=== PATIENT | female | born 1945 | race Caucasian/White ===

== ENCOUNTER 2021-06-05 16:29 | Emergency (ER) | payer MEDICARE, SELFPAY ==
[2021-06-05 17:00] VITALS: PULSE 88; RESP 17; TEMP 36.9; O2SAT 96; BMI 27.8
--- NOTE | 2021-06-05 19:17 | CTR_ITS ---
PROCEDURE INFORMATION: Exam: CT Head Without Contrast Exam date and time: 06/05/2021 7:17 PM Age: 76 years old Clinical indication: Altered mental status/memory loss; Confusion or disorientation; Additional info: AMS TECHNIQUE: Imaging protocol: Computed tomography of the head without contrast. Radiation optimization: All CT scans at this facility use at least one of these dose optimization techniques: automated exposure control; mA and/or kV adjustment per patient size (includes targeted exams where dose is matched to clinical indication); or iterative reconstruction. COMPARISON: No relevant prior studies available. RADIATION DOSE METRICS: Total DLP (mGy-cm): 626.19 FINDINGS: Brain: Mild diffuse cortical volume loss. Moderate hypodensities in supratentorial periventricular and subcortical white matter, consistent with microangiopathy. No intracranial hemorrhage. Cerebral ventricles: No ventriculomegaly. Paranasal sinuses: Mucosal thickening in the ethmoid air cells. No air-fluid level. Mastoid air cells: Visualized mastoid air cells are well aerated. Orbital cavity: Prior cataract surgery. Vasculature: No hyperdense artery. Bones/joints: Unremarkable. No acute fracture. Soft tissues: Unremarkable. CT/CT head wo con* [id number] IMPRESSION: No acute intracranial abnormality. Radiation Dose CTDIVOL = (mGy): DLP = 626.19 (mGy-cm)
--- NOTE | 2021-06-05 19:17 | XRR_ITS ---
PROCEDURE INFORMATION: Exam: XR Chest Exam date and time: 06/05/2021 7:17 PM Age: 76 years old Clinical indication: Other: No chest complaints; Additional info: AMS TECHNIQUE: Imaging protocol: XR of the chest. Views: 1 view. COMPARISON: CR Chest 1 [place] [id number] 03/27/2015 5:34 PM FINDINGS: Lungs: Mild atelectasis in the lung bases. The lungs are otherwise clear. Pleural spaces: Unremarkable. No pleural effusion. No pneumothorax. Heart/Mediastinum: Calcified right hilar lymph nodes. Bones/joints: Mild scoliosis. XR/XR chest 1V portable [id number] IMPRESSION: 1. No acute findings.
--- NOTE | 2021-06-05 19:33 | XRR_ITS ---
PROCEDURE INFORMATION: Exam: XR Left Foot Exam date and time: 06/05/2021 7:33 PM Age: 76 years old Clinical indication: Swelling, leg or foot; Patient HX: Swelling and redness to foot no known injury; Additional info: Red swelling TECHNIQUE: Imaging protocol: XR Left foot. Views: 3 or more views. . COMPARISON: No relevant pr swelling of the foot. ior studies available. FINDINGS: Bones/joints: No fracture or dislocation identified. Mild degenerative changes of the 1st metatarsophalangeal joint.. Soft tissues: Dorsal soft tissue swelling. XR/XR foot LT min 3V* [id number] IMPRESSION: No acute skeletal abnormality.
--- NOTE | 2021-06-05 19:36 | ED_ITS ---
HPI - Altered Mental Status General: Chief Complaint: Altered Mental Status Stated Complaint: fall,multiple bruises- sever dementia Time Seen by Provider: 06/05/21 18:59 History of Present Illness: HPI narrative: 26-year-old female with a history of vascular dementia. Family notes that the vascular dementia has been increasing over the last 2 years. The patient's been falling a lot at home. She has multiple bruises. She has a left swollen tender warm red left foot. No fever. Mental status the past few days has been a bit worse. She is no longer feeding herself. Family is trying to take care of her but not able to. MD complaint: altered mental status Onset (ago): year(s) Timing confirmed by: family member Severity: moderate Consistency of symptoms: Getting Worse Context: history of similar presentation Associated symptoms: Reports other; Deny suicidal ideation Review of Systems General: Reports: ROS unobtainable due to medical condition Narrative: Items from review of systems taken from family Const: Denies: fever(s), chills or change in weight Card: Reports: swelling of feet/ankles; Denies: chest pain Resp: Denies: dyspnea, productive cough or non-productive cough GI: Denies: vomiting or hematochezia : Reports: urinary incontinence Musc: Reports: other (Frequent falls) Neuro: Reports: lack of coordination, difficulty walking, frequent falls and difficulty communicating thoughts; Denies: seizure-like activity Psych: Denies: suicidal ideation Physical Exam Const: COMMON NORMALS: no acute distress EXAM LIMITATIONS: altered mental status GENERAL APPEARANCE: comfortable, well kempt and frail appearing; not in distress and not ill appearing ORIENTATION/CONSCIOUSNESS: Yes awake; not oriented to person, not oriented to place and not oriented to time HENMT: COMMON NORMALS: normocephalic and Normal external nose present HEAD & SCALP: normocephalic FACE & SINUS: normal facial exam NOSE: Normal external nose present and Normal nares present Eye: COMMON NORMALS: Equal, round and reactive pupils present and EOMs intact bilaterally PUPIL: Yes Equal, round and reactive pupils present Chest: COMMONS NORMALS: normal inspection of the chest Resp: COMMON NORMALS: normal respiratory effort, No use of accessory muscles and clear to auscultation bilaterally AUSCULTATION: clear to auscultation bilaterally Cardio: COMMON NORMALS: regular rate and regular rhythm RATE: regular rate RHYTHM: regular rhythm GI: COMMON NORMALS: Normal to inspection, nondistended, normoactive bowel sounds present, Soft to palpation and no masses PALPATION: Yes Soft to palpation Neuro: SENSORIUM/ORIENTATION: No oriented to person, No oriented to place and No oriented to time Psych: APPEARANCE: Yes well kempt Course Vital Signs: Vital signs: Vital Signs Temperature 98.4 F 06/05/21 17:00 Pulse Rate 83 06/05/21 21:56 Respiratory Rate 18 06/05/21 21:56 Blood Pressure 136/67 06/05/21 21:56 Pulse Oximetry 97 06/05/21 21:56 MDM - Altered Mental Status MDM Narrative: Medical decision making narrative: 76-year-old female with vascular dementia. Multiple falls. She does have some cellulitic changes to her left foot, but no bony changes. Chest x-ray is negative. Head CT is negati ve for acute change. Her laboratory is not remarkable. No urinary tract infection. Counseled with the fact that she does not meet admission criteria, will not qualify for 3 night stay in the hospital, and would therefore not be a candidate for skilled placement. We did offer case management consultation on Monday for home health help, and to contact PCP regarding the potential for dementia unit placement hopefully. Lab Data: Labs: Lab Results 06/05/21 06/05/21 06/05/21 Range/Units 19:30 19:30 19:30 WBC 7.7 (4.0-10.0) 10^3/ uL RBC 4.27 (4.1-5.3) 10^6/u L Hgb 12.9 (11.5-15.3) g/dL Hct 40.2 (37.0-47.0) % MCV 94.1 (81-99) fl MCH 30.2 (28.0-34.0) pg MCHC 32.1 (30.0-36.0) g/dL RDW 13.7 (12.1-15.1) % Plt Count 181 (130-400) 10^3/c mm MPV 13.1 H (7.4-10.4) fL Neut % (Auto) 68.8 % Lymph % (Auto) 17.4 % [place] % (Auto) 10.0 % Eos % (Auto) 2.7 % Baso % (Auto) 0.8 % Neut # (Auto) 5.31 (1.8-7.7) 10^3/u L Lymph # (Auto) 1.3 (0.8-4.8) 10^3/u L [place] # (Auto) 0.8 (0.2-0.9) 10^3/u L Eos # (Auto) 0.2 (0.0-0.8) 10^3/u L Baso # (Auto) 0.1 (0.0-0.1) 10^3/u L Nucleated RBC % (a uto) 0 % Nucleated RBCs # 0.0 /100WBC Sodium 141 (136-145) mmol/L Potassium 4.2 (3.5-5.1) mmol/L Chloride 107 (98-107) mmol/L Carbon Dioxide 24 (22-29) mmol/L Anion Gap 14.2 (5-19) BUN 13 (8-23) mg/dL Creatinine 0.6 (0.5-0.9) mg/dL GFR Calculation Not Reportable Glucose 94 (65-115) mg/dL Calculated Osmolal ity 292 (285-295) mOsm/k g Lactate 1.4 (0.5-2.2) mmol/L Calcium 9.1 (8.5-10.5) mg/dL Total Bilirubin 0.7 (0.15-1.2) mg/dL AST 18 (0-32) U/L ALT 10 (0-33) U/L Alkaline Phosphata se 76 (35-105) IU/L Creatine Kinase 26 (26-192) U/L C-Reactive Protein 12.0 H (0.0-4.9) mg/L Total Protein 6.0 L (6.6-8.7) g/dL Albumin 3.4 L (3.5-5.2) g/dL Globulin 2.6 (1.3-4.6) g/dL Urine Color (Yellow) Urine Appearance (CLEAR) Urine pH (5-7) Ur Specific Gravit y (1.005-1.030) Urine Protein (Negative) Urine Glucose (UA) (Normal) Urine Ketones (Negative) Urine Blood (Negative) Urine Nitrate (Negative) Urine Bilirubin (Negative) Urine Urobilinogen (Negative) mg/dL Ur Leukocyte Kelley ase (Negative) 06/05/21 Range/Units 21:00 WBC (4.0-10.0) 10^3/ uL RBC (4.1-5.3) 10^6/u L Hgb (11.5-15.3) g/dL Hct (37.0-47.0) % MCV (81-99) fl MCH (28.0-34.0) pg MCHC (30.0-36.0) g/dL RDW (12.1-15.1) % Plt Count (130-400) 10^3/c mm MPV (7.4-10.4) fL Neut % (Auto) % Lymph % (Auto) % [place] % (Auto) % Eos % (Auto) % Baso % (Auto) % Neut # (Auto) (1.8-7.7) 10^3/u L Lymph # (Auto) (0.8-4.8) 10^3/u L [place] # (Auto) (0.2-0.9) 10^3/u L Eos # (Auto) (0.0-0.8) 10^3/u L Baso # (Auto) (0.0-0.1) 10^3/u L Nucleated RBC % (a uto) % Nucleated RBCs # /100WBC Sodium (136-145) mmol/L Potassium (3.5-5.1) mmol/L Chloride (98-107) mmol/L Carbon Dioxide (22-29) mmol/L Anion Gap (5-19) BUN (8-23) mg/dL Creatinine (0.5-0.9) mg/dL GFR Calculation Glucose (65-115) mg/dL Calculated Osmolal ity (285-295) mOsm/k g Lactate (0.5-2.2) mmol/L Calcium (8.5-10.5) mg/dL Total Bilirubin (0.15-1.2) mg/dL AST (0-32) U/L ALT (0-33) U/L Alkaline Phosphata se (35-105) IU/L Creatine Kinase (26-192) U/L C-Reactive Protein (0.0-4.9) mg/L Total Protein (6.6-8.7) g/dL Albumin (3.5-5.2) g/dL Globulin (1.3-4.6) g/dL Urine Color Yellow (Yellow) Urine Appearance Clear (CLEAR) Urine pH 5 (5-7) Ur Specific Gravit y 1.025 (1.005-1.030) Urine Protein Neg (Negative) Urine Glucose (UA) Norm (Normal) Urine Ketones 1+ H (Negative) Urine Blood Neg (Negative) Urine Nitrate Negative (Negative) Urine Bilirubin 1+ H (Negative) Urine Urobilinogen 1 H (Negative) mg/dL Ur Leukocyte Kelley ase Negative (Negative) Discharge Plan Discharge Patient Disposition: Home Clinical Impression: Cellulitis of foot Dementia, vascular Qualifiers: Dementia behavioral disturbance: without behavioral disturbance Qualified Code(s): F01.50 - Vascular dementia without behavioral disturbance Condition: Stable Prescriptions: New cephalexin 500 mg capsule 500 mg PO Q6H 10 Days Qty: 40 RF: 0 Discharge Orders: Discharge ED (Routine); Ordered 06/05/21 Ordered By: Ash Beasley Referrals: Yennifer Henley MD [Primary Care Provider] - 4-7 days Discharge Diet: Advance as tolerated Discharge Activity: Increase activity as tolerated Patient Instructions: Cellulitis (ED), Dementia (ED), Opioid Safety Activity Restrictions/Additional Instructions: Return for fever greater than 100, vomiting liquids or medications, worsening pain, redness, swelling despite at least 3-4 doses of antibiotics, other concerning symptoms. Coding Level of Care Code ED Calender Roll Press Operator for Chg Fwd Exam Detailed
[2021-06-05 19:43] LABS: Basophils # 0.1 10^3/uL (0.0-0.1); Basophils % 0.8 %; Eosinophils # 0.2 10^3/uL (0.0-0.8); Eosinophils % 2.7 %; Hematocrit 40.2 % (37.0-47.0); Hemoglobin 12.9 g/dL (11.5-15.3); Lymphocytes # 1.3 10^3/uL (0.8-4.8); Lymphocytes % 17.4 %; Mean Corpuscular HGB Conc 32.1 g/dL (30.0-36.0); Mean Corpuscular Hemoglobin 30.2 pg (28.0-34.0); Mean Corpuscular Volume 94.1 fl (81-99); Mean Platelet Volume 13.1 fL (7.4-10.4); Monocytes # 0.8 10^3/uL (0.2-0.9); Neutrophils # 5.31 10^3/uL (1.8-7.7); Neutrophils % 68.8 %; Nucleated Red Blood Cells % 0 %; Platelet Count 181 10^3/cmm (130-400); Red Blood Count 4.27 10^6/uL (4.1-5.3); Red Cell Distribution Width 13.7 % (12.1-15.1); White Blood Count 7.7 10^3/uL (4.0-10.0)
[2021-06-05 20:00] VITALS: BP 110/62; PULSE 84; RESP 18; O2SAT 93
[2021-06-05 20:06] LABS: Alanine Aminotransferase 10 U/L (0-33); Albumin Level 3.4 g/dL (3.5-5.2); Alkaline Phosphatase 76 IU/L (35-105); Anion Gap 14.2 (5-19); Aspartate Amino Transferase 18 U/L (0-32); Blood Urea Nitrogen 13 mg/dL (8-23); Calcium 9.1 mg/dL (8.5-10.5); Carbon Dioxide 24 mmol/L (22-29); Chloride 107 mmol/L (98-107); Creatine Phosphokinase 26 U/L (26-192); Globulin 2.6 g/dL (1.3-4.6); Glucose 94 mg/dL (65-115); Osmolality Calculated 292 mOsm/kg (285-295); Potassium 4.2 mmol/L (3.5-5.1); Sodium 141 mmol/L (136-145); Total Bilirubin 0.7 mg/dL (0.15-1.2)
[2021-06-05 20:07] LABS: Lactate (Lactic Acid level) 1.4 mmol/L (0.5-2.2)
[2021-06-05] MEDS: haloperidol inj 5 mg/mL INJ 1 mL 2 MG IVP (20:19)
[2021-06-05 21:00] VITALS: BP 136/67; PULSE 78; RESP 18; O2SAT 93
[2021-06-05 21:06] LABS: Add Urine Microscopic? NO; Charge for UA Resulting for Rev
[2021-06-05 21:12] LABS: Bilirubin Urine 1+ (Negative); Blood Urine Neg (Negative); Glucose Urine UA Norm (Normal); Ketones Urine 1+ (Negative); Leukocyte Esterase Urine Negative (Negative); Nitrate Urine Negative (Negative); Protein Urine Neg (Negative); Specific Gravity, Urine 1.025 (1.005-1.030); Urine Appearance Clear (CLEAR); Urine Color Yellow (Yellow); Urobilinogen Urine 1 mg/dL (Negative); pH Urine 5 (5-7)
[2021-06-05 21:56] VITALS: BP 136/67; PULSE 83; RESP 18; O2SAT 97
--- NOTE | 2021-06-09 10:04 | DCPLANNER ---
mail manager had message to speak with patient about setting up home health services. mail manager called phone number [phone], unable to speak with patient or leave a voicemail for patient at this time.
== END 2021-06-05 21:57 | disposition home or self-care (01) ==
PROVIDERS: Emergency Provider Emergency Medicine; PCP Family Medicine
DX: L03.116 Cellulitis of left lower limb (principal); F01.50 Vascular dementia, unspecified severity, without behavioral disturbance, psychotic disturbance, mood disturbance, and anxiety
CPT/HCPCS: 70450; 71045; 73630; 80053; 81003; 82550; 83605; 85025; 86140; 96374; 99284; J1630

== ENCOUNTER 2021-10-27 15:30 | Emergency (ER) | payer MEDICARE, SELFPAY ==
[2021-10-27 15:37] VITALS: PULSE 88; RESP 18; TEMP 36.7
--- NOTE | 2021-10-27 15:56 | CTR_ITS ---
PROCEDURE INFORMATION: Exam: CT Head Without Contrast Exam date and time: 10/27/2021 3:56 PM Age: 76 years old Clinical indication: Altered mental status/memory loss; Additional info: AMS TECHNIQUE: Imaging protocol: Computed tomography of the head without contrast. Radiation optimization: All CT scans at this facility use at least one of these dose optimization techniques: automated exposure control; mA and/or kV adjustment per patient size (includes targeted exams where dose is matched to clinical indication); or iterative reconstruction. COMPARISON: CT head wo con* [id number] 06/05/2021 8:33 PM RADIATION DOSE METRICS: Total DLP (mGy-cm): 818.4 FINDINGS: Brain: No hemorrhage. Moderate diffuse cerebral atrophy and sequela of chronic small vessel ischemic disease. No mass effect. Cerebral ventricles: No ventriculomegaly. Paranasal sinuses: Visualized sinuses are unremarkable. No fluid levels. Mastoid air cells: Visualized mastoid air cells are well aerated. Bones/joints: Unremarkable. No acute fracture. Soft tissues: Unremarkable. CT/CT head wo con* [id number] IMPRESSION: 1. No acute intracranial abnormality. 2. Moderate diffuse cerebral atrophy and sequela of chronic small vessel ischemic disease.
--- NOTE | 2021-10-27 16:48 | W.ED.AMS ---
HPI - Altered Mental Status General: Chief Complaint: Altered Mental Status Stated Complaint: AMS Time Seen by Provider: 10/27/21 15:40 Source: EMS Mode of arrival: EMS Limitations: altered mental status History of Present Illness: HPI narrative: 76-year-old female brought in by EMS with decreased responsiveness, not eating or drinking, acute deterioration over the past 3 days. She has had progressive dementia, has been cared for at home by her . He states that over the past several days she has stopped eating and drinking altogether, almost as if she has forgotten how to swallow . She is also stopped talking over the past week. No fever, recent falls, vomiting. MD complaint: decreased responsiveness Onset (ago): unknown Review of Systems General: Reports: ROS unobtainable due to medical condition and ROS unobtainable due to mental status Physical Exam Const: GENERAL APPEARANCE: ill appearing, frail appearing and Limp noted NUTRITIONAL APPEARANCE: underweight ORIENTATION/CONSCIOUSNESS: Yes patient obtunded HENMT: COMMON NORMALS: normocephalic and atraumatic HEAD & SCALP: normocephalic and atraumatic MOUTH: moist mucous membranes abnormal Details: cracked and parched Eye: CORNEA: Yes other (Dry) Neck/C-Spine: COMMON NORMALS: no lymphadenopathy and supple Resp: COMMON NORMALS: normal respiratory effort EFFORT & INSPECTION: No respiratory distress GI: COMMON NORMALS: Normal to inspection, nondistended, normoactive bowel sounds present, Soft to palpation and non-tender PALPATION: Yes Soft to palpation Extremity: GENERAL: Yes cyanosis (Feet) and No deformity Neuro: YINKA COMA SCALE: document GCS findings [place] coma scale eye opening: Spontaneous [place] coma scale verbal response: Sounds Y[place] coma scale motor response: Extension [place] coma scale total score: 8 SENSORIUM/ORIENTATION: Yes obtunded GAIT: Yes Unable to assess gait MOTOR EXAM: no tremor noted and Motor fasciculations not present Skin: GENERAL SKIN EXAM: dry skin and turgor decreased Course Vital Signs: Vital signs: Vital Signs Temperature 98.0 F 10/27/21 15:37 Pulse Rate 88 10/27/21 15:37 Respiratory Rate 18 10/27/21 15:37 MDM - Altered Mental Status MDM Narrative: Medical decision making narrative: 76 year old female with late stage dementia, stopped eating and drinking several days ago, now with severe dehydration, critical hypernatremia. Her and son are here with her, they understand that her prognosis is very poor, and and she is likely in the last stages of dementia. They are most concerned about making sure she is not suffering or in pain. I discussed home hospice with them, and they are agreeable. I check to see if there would be any bed availability tonight to have her admitted while it could be arranged, however there is a critical bed shortage at the moment. Stat referral to home hospice was submitted She will be transported by ambulance to her son's house, home hospice hopefully will be able to set up care tomorrow morning. She was given 2 L fluid bolus, morphine 4 mg IV x1 for restlessness. Differential Diagnosis: Differential diagnosis altered mental status: Likely delirium, dementia, hypoglycemia, subarachnoid hemorrhage and sepsis Medical Records: Attestation: I reviewed the patient's medical records. Lab Data: Attestation: I reviewed the patient's lab results. Labs: Lab Results 10/27/21 10/27/21 17:31 17:31 WBC 14.3 10^3/uL H 10 ^3/uL (4.0-10.0) RBC 5.70 10^6/uL H 10 ^6/uL (4.1-5.3) Hgb 16.8 g/dL H g/dL (11.5-15.3) Hct 57.0 % H % (37.0-47.0) MCV 100.0 fl H fl (81-99) MCH 29.5 pg pg (28.0-34.0) MCHC 29.5 g/dL L g/dL (30.0-36.0) RDW 13.5 % % (12.1-15.1) Plt Count 162 10^3/cmm 10^3 /cmm (130-400) MPV 14.4 fL H fL (7.4-10.4) Neut % (Auto) 84.8 % % Lymph % (Auto) 7.6 % % [place] % (Auto) 6.9 % % Eos % (Auto) 0.0 % % Baso % (Auto) 0.3 % % Neut # (Auto) 12.08 10^3/uL H 1 0^3/uL (1.8-7.7) Lymph # (Auto) 1.1 10^3/uL 10^3/ uL (0.8-4.8) [place] # (Auto) 1.0 10^3/uL H 10^ 3/uL (0.2-0.9) Eos # (Auto) 0.0 10^3/uL 10^3/ uL (0.0-0.8) Baso # (Auto) 0.0 10^3/uL 10^3/ uL (0.0-0.1) Nucleated RBC % (a uto) 0 % % Nucleated RBCs # 0.0 /100WBC /100W BC Sodium 163 mmol/L H* mmo l/L (136-145) Potassium 3.8 mmol/L mmol/L (3.5-5.1) Chloride 125 mmol/L H mmol /L (98-107) Carbon Dioxide 19 mmol/L L mmol/ L (22-29) Anion Gap 22.8 H (5-19) BUN 62 mg/dL H mg/dL (8-23) Creatinine 1.3 mg/dL H mg/dL (0.5-0.9) GFR Calculation Not Reportable Glucose 121 mg/dL H mg/dL (65-115) Calculated Osmolal ity 355 mOsm/kg H mOs m/kg (285-295) Calcium 10.2 mg/dL mg/dL (8.5-10.5) Magnesium 2.7 mg/dL H mg/dL (1.7-2.3) Total Bilirubin 0.8 mg/dL mg/dL (0.15-1.2) AST 56 U/L H U/L (0-32) ALT 105 U/L H U/L (0-33) Alkaline Phosphata se 105 IU/L IU/L (35-105) Creatine Kinase 44 U/L U/L (26-192) Total Protein 7.3 g/dL g/dL (6.6-8.7) Albumin 4.4 g/dL g/dL (3.5-5.2) Globulin 2.9 g/dL g/dL (1.3-4.6) Discharge Plan Discharge Patient Disposition: Home Clinical Impression: Hyperosmolality with hypernatremia, Severe dehydration, Encounter for end of life care, Rapidly progressive dementia Condition: Stable Discharge Orders: Discharge ED (Routine); Ordered 10/27/21 Ordered By: Tawny Hines Referrals: Yennifer Henley MD [Primary Care Provider] - Patient Instructions: Hospice Care Coding Level of Care Code ED Legal Activity Adjudicator for Rai Rivero
[2021-10-27 17:45] LABS: Basophils % 0.3 %; Hemoglobin 16.8 g/dL (11.5-15.3); Lymphocytes # 1.1 10^3/uL (0.8-4.8); Lymphocytes % 7.6 %; Mean Corpuscular HGB Conc 29.5 g/dL (30.0-36.0); Mean Corpuscular Hemoglobin 29.5 pg (28.0-34.0); Mean Platelet Volume 14.4 fL (7.4-10.4); Monocytes % 6.9 %; Neutrophils # 12.08 10^3/uL (1.8-7.7); Neutrophils % 84.8 %; Nucleated Red Blood Cells % 0 %; Platelet Count 162 10^3/cmm (130-400); Red Cell Distribution Width 13.5 % (12.1-15.1); White Blood Count 14.3 10^3/uL (4.0-10.0)
[2021-10-27 18:01] LABS: Alanine Aminotransferase 105 U/L (0-33); Albumin Level 4.4 g/dL (3.5-5.2); Alkaline Phosphatase 105 IU/L (35-105); Anion Gap 22.8 (5-19); Aspartate Amino Transferase 56 U/L (0-32); Blood Urea Nitrogen 62 mg/dL (8-23); Calcium 10.2 mg/dL (8.5-10.5); Carbon Dioxide 19 mmol/L (22-29); Chloride 125 mmol/L (98-107); Creatine Phosphokinase 44 U/L (26-192); Globulin 2.9 g/dL (1.3-4.6); Glucose 121 mg/dL (65-115); Magnesium 2.7 mg/dL (1.7-2.3); Osmolality Calculated 355 mOsm/kg (285-295); Potassium 3.8 mmol/L (3.5-5.1); Total Bilirubin 0.8 mg/dL (0.15-1.2); Total Protein 7.3 g/dL (6.6-8.7)
[2021-10-27 18:06] LABS: Sodium 163 mmol/L (136-145)
[2021-10-27 18:20] LABS: Slide Review Slide Review Perform
[2021-10-27] MEDS: sodium chloride 0.9% 1,000 ML 999 ML IV (19:43)
[2021-10-27] MEDS: morphine 4 mg/mL SDV 1 mL (21:15)
== END 2021-10-27 21:34 | disposition home or self-care (01) ==
PROVIDERS: Emergency Provider Family Medicine; PCP Family Medicine
DX: E87.0 Hyperosmolality and hypernatremia (principal); E86.0 Dehydration; F03.90 Unspecified dementia, unspecified severity, without behavioral disturbance, psychotic disturbance, mood disturbance, and anxiety; Z51.5 Encounter for palliative care
CPT/HCPCS: 70450; 80053; 82550; 83735; 85025; 96361; 96374; 99284; J2270; J7030